=== PATIENT | male | born 1995 | race Caucasian/White ===

== ENCOUNTER 2020-08-25 12:59 | Emergency (ER) | payer MEDICAID, OTHER ==
[~2020-08-25] VITALS: Ht 185.4 cm; Wt 81.7 kg
[2020-08-25 13:27] VITALS: BP 122/67
[2020-08-25] MEDS ORDERED: NEOSPORIN OINT. PKT 1 PACKET ONE (14:17)
--- NOTE | 2020-08-25 15:43 | NUR ---
Patient/Caregiver given discharge instructions and they have confirmed that they understand the instructions. Patient ambulatory with steady gait. NAD, all questions answered appropriately, denies additional needs at this time. No personal belongings left in room after discharge.
== END 2020-08-25 15:41 | disposition home or self-care (01) ==
LOC: ED 15:00
DX: S60.211A Contusion of right wrist, initial encounter (principal); X58.XXXA Exposure to other specified factors, initial encounter; Y93.89 Activity, other specified; Y92.009 Unspecified place in unspecified non-institutional (private) residence as the place of occurrence of the external cause; Y99.8 Other external cause status
CPT/HCPCS: 99284